=== PATIENT | male | born 1965 | race Caucasian/White ===

== ENCOUNTER 2019-07-16 09:46 | Emergency (ER) | payer BC ==
--- OUTSIDE RECORDS SUMMARY | 2019-07-16 09:58 | XMS REPORT | Continuity of Care Document ---
:1965 External Reference #:[id number] Author Name PAWAN Schmidt (transmitted by agent of provider Harshal Da Silva) Address [address] [place] [address] Care Team Providers Name Role Phone Zach Kim Family Medicine Care Team Information [employer] Lieutenant [phone] Problems Active Problems Provider Date Prostatitis Zach Kim M.D. Onset: 11/12/2018 Other human herpesvirus infection Zach Kim M.D. Onset: 12/07/2015 Blood chemistry abnormal Zach Kim M.D. Onset: 05/08/2014 Increased frequency of urination Zach Kim M.D. Onset: 08/22/2013 Benign essential hypertension Zach Kim M.D. Onset: 08/22/2013 Hyperlipidemia Zach Kim M.D. Onset: 08/22/2013 Coronary arteriosclerosis Zach Kim M.D. Onset: 08/22/2013 Deficiency anemias Zach Kim M.D. Onset: 08/22/2013 Acute gastrojejunal ulcer with hemorrhage but Zach Kim M.D. Onset: without obstruction Social History Type Date Description Comments Sex Unknown Tobacco Use Start: Unknown End: Unknown Former Cigarette Smoker ETOH Use Denies alcohol use Tobacco Use Start: Unknown End: Unknown Patient is a former smoker Smoking Status Reviewed: 07/15/19 Patient is a former smoker Allergies, Adverse Reactions, Alerts Description No Known Drug Allergies Medications Active Medications SIG Qnty Indications Ordering Provider Date [facility] Wort 2 po qd PAWAN Contreras 10/23/2018 300mg Capsules Cialis take 1 tablet 30tabs N52.9 Zach Kim, 06/01/2017 5mg Tablets every day as M.DTamar directed Lamictal 1 by mouth daily 90tabs F31.11 Hanna Davidson, [facility] 08/24/2016 100mg Tablets Plavix 1 po qd Unknown 75mg Tablets Losartan 1 by mouth every Unknown Potassium/Hydrochloro day thiazide 100-12.5mg Tablets Atorvastatin Calcium 1 by mouth every Unknown day 80mg Tablets History Medications Levaquin 1 by mouth 7tabs J01.90 Litzy Rebecca 01/27/2019 - 500mg daily x 7 days SAHIL Lam 02/03/2019 Tablets Immunizations Description No Information Available Vital Signs Date Vital Result Comment 07/15/2019 8:30pm BP Systolic 100 mmHg BP Diastolic 68 mmHg Heart Rate 80 /min Body Temperature 100.8 F Respiratory Rate 16 /min Height 66 inches 5'6" Weight 203.00 lb BMI (Body Mass Index) 32.8 kg/m2 01/27/2019 4:13pm BP Systolic 132 mmHg BP Diastolic 60 mmHg Heart Rate 66 /min Body Temperature 98.8 F Respiratory Rate 16 /min Height 66 inches 5'6" Weight 202.50 lb BMI (Body Mass Index) 32.7 kg/m2 Results Test Acquired Date Facility Test Result H/L Range Note Laboratory test 05/06/2019 [facility] [place] Clotest SEE RESULT 1 finding BELOW Surgical Pathology 05/06/2019 [facility] [place] Surgical SEE RESULT 2 Pathology BELOW PDFReport SEE IMAGE 1 SEE RESULT BELOW Name: REJI VELAZQUEZ : [address]: Kingston Echevarria MD Acct: [id number] Unit: [id number] AGE: 54 Location: ENDO Re05/06/19 SEX: M Status: REG REF SPEC: [id number] PILO: 05/06/19-[address]: Kingston Echevarria MD REQ: [id number] RECD: 05/06/19-1356 STATUS: COMP BLESSING DR: Zach Kim MD _ SOURCE: GAS ANTRUM SPDESC: ORDERED: Clotest Procedure Result Reported Site Clotest Final 05/07/19- 0700 ML Clotest Negative * ML - Main Lab . END OF REPORT DEPARTMENT OF PATHOLOGY, [address] [place] [address] Aaron Garcia M.D. Director [facility] # [id number] 2 SEE RESULT BELOW Name: REJI VELAZQUEZ : [address]: Kingston Echevarria MD Acct: [id number] Unit: [id number] AGE: 54 Location: ENDO Re05/06/19 SEX: M Status: DEP REF SPEC: [id number] PILO: 05/06/19 [facility] DR: Kingston Echevarria MD REQ: [id number] RECD: 05/06/19 STATUS: DARIAN FUNK DR: Zach Kim MD _ ORDERED: LEVEL 4 FINAL DIAGNOSIS Stomach, greater curvature, biopsy: -- Body-type gastric mucosa with minimal superficial chronic gastritis. -- No evidence of Helicobacter organisms. CLINICAL HISTORY Abdominal pain POST-OPERATIVE DIAGNOSIS EGD: larynx - not seen; esophagus - normal esophagogastric 37 cm; small sliding hiatal hernia; stomach - normal; GER test and biopsy (2); duodenum - mild scar apex of bulb; colonoscopy: normal; conclusions: small sliding hiatal hernia; history of duodenal ulcers; dyspepsia unknown; normal colon and terminal ileum GROSS DESCRIPTION The specimen is received in formalin labeled, Biopsy Gastric Greater Curvature, and consists of two denney red irregular to polypoid soft tissue fragments measuring 0.5 x 0.4 x 0.3 cm and 0.8 x 0.4 x 0.2 cm, which are entirely submitted in one cassette. Signed by and Reported on: Do Ta MD 05/08/19 1235 END OF REPORT DEPARTMENT OF PATHOLOGY, [address] [place] [address] Aaron Garcia M.D. Director [facility] # [id number] Procedures Date Code Description Status 05/06/2019 [id number] Colonoscopy Completed Medical Devices Description No Information Available Encounters Type Date Location Provider Dx Diagnosis Office Visit 01/27/2019 Main Office Litzy Fernandez J01.90 Acute sinusitis, 4:00p SAHIL Lam unspecified Assessments Date Code Description Provider 07/15/2019 R50.9 Fever, unspecified Do Parks, [facility] 07/15/2019 R05 Cough Do Parks, [facility] 01/27/2019 J01.90 Acute sinusitis, unspecified Litzy Lam NP Plan of Treatment 07/15/2019 - Do Parks, FNPR50.9 Fever, [id number] CoughAllComments: Medication Management Patient Understands medications he 's taking? Yes No Are there Barriers to Adherence? Yes No Has the patient been asked about herbal supplements and therapies, andOTC meds? Yes No As always, we strongly encourage a healthy diet and making physical activity a part of your every day life. If you have questions about how or where to start, please contact the office. Functional Status Description No Information Available Mental Status Description No Information Available Referrals Description No Information Available
--- OUTSIDE RECORDS SUMMARY | 2019-07-16 09:58 | XMS REPORT | Continuity of Care Document ---
:1965 External Reference #:[id number] Author Name Debo Meng, MSN, SUPERIOR COURT CLERK Address [address] [place] [address] Care Team Providers Name Role Phone Harshal Da Silva MD - Family Medicine Care Team Information Cell Tuber Hand [phone] Zach Kim MD - Ophthalmic Care Team Information Cell T[employer] Hand [phone] Problems Active Problems Provider Date Anxiety state Bryan Germain M.D., Onset: 02/06/2018 [facility] Essential hypertension Bryan Germain M.D., Onset: 01/28/2015 [facility] Atherosclerotic heart disease of Bryan Germain M.D., Onset: 01/28/2015 [place] coronary artery without angina [facility] pectoris Benign essential hypertension Bryan Germain M.D., Onset: 07/23/2014 [facility] Cough Bryan Germain M.D., Onset: 10/21/2012 [facility] Malaise and fatigue Bryan Germain M.D., Onset: 10/21/2012 [facility] Sleep dysfunction with sleep stage Bryan Germain M.D., Onset: 2012 disturbance [facility] Hyperlipidemia Bryan Germain M.D., Onset: 08/15/2012 [facility] Coronary arteriosclerosis Bryan Germain M.D., Onset: 08/15/2012 [facility] Chest pain Bryan Germain M.D., Onset: 08/15/2012 [facility] Chronic ischemic heart disease Onset: 08/25/2013 Gastroesophageal reflux disease Kingston Echevarria MD Onset: 07/31/2009 Tobacco user Kingston Echevarria MD Onset: 09/01/2010 Social History Type Date Description Comments Sex Unknown Tobacco Use Start: Unknown End: Former Cigarette Smoker quit 2 yrs ago 2010 Unknown ETOH Use Drinks Alcoholic Beverages Rarely Allergies, Adverse Reactions, Alerts Description No Known Drug Allergies Medications Active Medications SIG Qnty Indications Ordering Date Provider Atorvastatin Calcium 1 by mouth every 90tabs Bryan Germain 08/26/2018 day Enriqueta Sorensen, [facility] 80mg Tablets Losartan Take One Tablet By 30tabs I10 Debo Meng 07/30/2018 Potassium/Hydrochloro Mouth Every Day Talat, MSN, thiazide SUPERIOR COURT CLERK 100-12.5mg Tablets Lorazepam 1 by mouth or 60tabs Bryan Germain 01/07/2016 0.5mg Tablets sublingual two Enriqueta Sorensen, [facility] times a day as needed for anxiety Nitrostat place one tablet 25tabs Delgado Mcrae 11/19/2013 0.4mg Tablets under the tongue ELLY Alexis Sub every 5 minutes for up to 3 doses as needed for chest pain. if chest pain still persists co Lamictal 1 tab by mouth Unknown 100mg Tablets every day Cialis 1 tab by mouth as Unknown 10mg Tablets needed Plavix Take One Tablet By 90tabs Bryan Germain 75mg Tablets Mouth Every Day Enriqueta Sorensen, [facility] Immunizations Description No Information Available Vital Signs Date Vital Result Comment 05/23/2019 7:58am BP Systolic Sitting Left Arm 102 mmHg BP Diastolic Sitting Left Arm 60 mmHg Heart Rate 90 /min Respiratory Rate 16 /min Height 67 inches 5'7" Weight 207.00 lb BMI (Body Mass Index) 32.4 kg/m2 BSA (Body Surface Area) 2.05 m2 [place] body weight in kilograms 67 kg O2 % BldC Oximetry 98 % 10/16/2018 2:09pm BP Systolic Sitting Right Arm 118 mmHg BP Diastolic Sitting Right Arm 74 mmHg Heart Rate 61 /min Respiratory Rate 18 /min Height 67 inches 5'7" Weight 200.00 lb BMI (Body Mass Index) 31.3 kg/m2 BSA (Body Surface Area) 2.02 m2 [place] body weight in kilograms 67 kg O2 % BldC Oximetry 95 % Results Description No Information Available Procedures Description No Information Available Medical Devices Description No Information Available Encounters Type Date Location Provider Dx Diagnosis Office Visit 05/23/2019 Cardiology Office MengDebo I25.10 [facility] 7:40a Talat, [place], disease of [place] SUPERIOR [employer] CLERK coronary artery w/o ang pctrs I10 Essential (primary) hypertension E78.5 Hyperlipidemia, unspecified F41.9 Anxiety disorder, unspecified Assessments Date Code Description Provider 05/23/2019 I25.10 Atherosclerotic heart disease of Yusra, Debo [place]and, [place], [place] coronary artery with SUPERIOR COURT CLERK 05/23/2019 I10 Essential (primary) hypertension Debo Meng, [place], SUPERIOR COURT CLERK 05/23/2019 E78.5 Hyperlipidemia, unspecified Debo Meng, [place], SUPERIOR COURT CLERK 05/23/2019 F41.9 Anxiety disorder, unspecified Debo Meng, [place], SUPERIOR COURT CLERK Plan of Treatment Future Appointment(s):12/01/2019 3:20 pm - Debo Meng, MSN, SUPERIOR COURT CLERK at Cardiology Tmoetk6305/23/2019 - Debo Meng MSN, FNPI25.10 Atherosclerotic heart disease of [place] coronary artery withNew Labs:CBC W/ Automated Diff, Ordered: 05/23/19Comments:He will get the labs ordered last visit.I10 Essential (primary) hypertensionComments:No changes.E78.5 Hyperlipidemia, unspecifiedNew Labs:Comprehensive Metabolic Panel, Ordered: LDL Cholesterol Profile, Ordered: 05/23/19Comments:Will get labs today.F41.9 Anxiety disorder, unspecifiedComments:No changes.AllFollow up: Follow up visit in six months. Functional Status Functional Condition Comment Date Status Independent with all ADL's Active Glasses Active Mental Status Description No Information Available Referrals Description No Information Available
--- OUTSIDE RECORDS SUMMARY | 2019-07-16 09:58 | XMS REPORT | Continuity of Care Document ---
:1965 External Reference #:[id number] Author Name Debo Meng, MSN, [employer]ER[employer] SUPERVISOR Address [address] [place] [address] Care Team Providers Name Role Phone Harshal Da Silva MD - Family Medicine Care Team Information Marine Chronometer Assembler [phone] Zach Kim MD - Ophthalmic Care Team Information Marine Chronometer Assembler [phone] Problems Active Problems Provider Date Anxiety state Bryan Germain M.D., Onset: 02/06/2018 [facility] Essential hypertension Bryan Germain M.D., Onset: 01/28/2015 [facility] Atherosclerotic heart disease of Bryan Germain M.D., Onset: 01/28/2015 [place] coronary artery without angina [facility] pectoris Benign essential hypertension Bryan Germain M.D., Onset: 07/23/2014 [facility] Cough Bryan Germain M.D., Onset: 10/21/2012 [facility] Malaise and fatigue Bryan Germain M.D., Onset: 10/21/2012 [facility] Sleep dysfunction with sleep stage Bryan Germain M.D., Onset: 2012 disturbance [facility] Hyperlipidemia Bryan Germain M.D., Onset: 08/15/2012 [facility] Coronary arteriosclerosis Bryan Germain M.D., Onset: 08/15/2012 [facility] Chest pain Bryan Germain M.D., Onset: 08/15/2012 [facility] Chronic ischemic heart disease Onset: 08/25/2013 Gastroesophageal reflux disease Kingston Echevarria MD Onset: 07/31/2009 Tobacco user Kingston Echevarria MD Onset: 09/01/2010 Social History Type Date Description Comments Sex Unknown Tobacco Use Start: Unknown End: Former Cigarette Smoker quit 2 yrs ago 2010 Unknown Smoking Status Reviewed: 07/04/19 Former Cigarette Smoker quit 2 yrs ago 2010 ETOH Use Drinks Alcoholic Beverages Rarely Allergies, Adverse Reactions, Alerts Description No Known Drug Allergies Medications Active Medications SIG Qnty Indications Ordering Date Provider Clopidogrel Take One Tablet By 90tabs Yusra, Debo 06/10/2019 Bisulfate Mouth Every Day [place], 75mg [employer] SUPERVISOR Tablets Atorvastatin Calcium 1 by mouth every 90tabs Bryan Germain 08/26/2018 karin Sorensen M.D., [facility] 80mg Tablets Losartan Take One Tablet By 30tabs I10 Debo Meng 07/30/2018 Potassium/Hydrochlor Mouth Every Day [place], othiazide [employer] SUPERVISOR 100-12.5mg Tablets Nitrostat place one tablet 25tabs Delgado Mcrae 11/19/2013 0.4mg under the tongue B., PA Tablets Sub every 5 minutes for up to 3 doses as needed for chest pain. if chest pain still persists co Lamictal 2 po daily Unknown 25mg Chewtabs Cialis take 1 tablet by Unknown 5mg Tablets mouth daily for erectile dysfunction [facility] Wort 2 by mouth every Unknown 300mg day Capsules Immunizations Description No Information Available Vital Signs Date Vital Result Comment 07/04/2019 8:20am BP Systolic Sitting Right Arm 128 mmHg BP Diastolic Sitting Right Arm 92 mmHg Heart Rate 76 /min Respiratory Rate 14 /min Height 67 inches 5'7" Weight 208.00 lb BMI (Body Mass Index) 32.6 kg/m2 BSA (Body Surface Area) 2.06 m2 [place] body weight in kilograms 67 kg O2 % BldC Oximetry 96 % Ra 05/23/2019 7:58am BP Systolic Sitting Left Arm 102 mmHg BP Diastolic Sitting Left Arm 60 mmHg Heart Rate 90 /min Respiratory Rate 16 /min Height 67 inches 5'7" Weight 207.00 lb BMI (Body Mass Index) 32.4 kg/m2 BSA (Body Surface Area) 2.05 m2 [place] body weight in kilograms 67 kg O2 % BldC Oximetry 98 % Results Test Acquired Date Facility Test Result H/L Range Note CBC No Diff 07/02/2019 [facility] White Blood 5.5 10^ 3/uL Normal 3.5-10.8 [phone] Count Red Blood Count 5.15 10^6/uL Normal 4.18-5.48 Hemoglobin 15.2 g/dL Normal 14.0-18.0 Hematocrit 44 % Normal 42-52 Mean Corpuscular Volume 85 fL Normal 80-94 Mean Corpuscular Hemoglobin 30 pg Normal 27-31 Mean Corpuscular HGB Conc 35 g/dL Normal 31-36 Red Cell Distribution Width 13 % Normal 10-15 Platelet Count 223 10^3/uL Normal 150-450 Mean Platelet Volume 8.2 fL Normal 7.4-10.4 Comp Metabolic 07/02/2019 [facility] Sodium 140 mmol/ L Normal 135-145 Panel [phone] Potassium 4.0 mmol/L Normal 3.5-5.0 Chloride 103 mmol/L Normal 101-111 Co2 Carbon Dioxide 32 mmol/L Normal 22-32 Anion Gap 5 mmol/L Normal 2-11 Glucose 86 mg/dL Normal 70-100 Blood Urea Nitrogen 18 mg/dL Normal 6-24 Creatinine 0.92 mg/dL Normal 0.67-1.17 BUN/Creatinine Ratio 19.6 Normal 8-20 Calcium 9.7 mg/dL Normal 8.6-10.3 Total Protein 6.6 g/dL Normal 6.4-8.9 Albumin 4.4 g/dL Normal 3.2-5.2 Globulin 2.2 g/dL Normal 2-4 Albumin/Globulin Ratio 2.0 Normal 1-3 Total Bilirubin 0.70 mg/dL Normal 0.2-1.0 Alkaline Phosphatase 68 U/L Normal 34-104 Alt 35 U/L Normal 7-52 Ast 21 U/L Normal 13-39 Egfr Non- 85.7 >60 Egfr 103.7 >60 1 Laboratory test 07/02/2019 [facility] LDL Cholesterol 79 mg/dL 2 finding [phone] Direct 1 Because ethnic data is not always readily available, this report includes an eGFR for both -Americans and non- Americans. The National Kidney Disease Education Program (NKDEP) does not endorse the use of the MDRD equation for patients that are not between the ages of 18 and 70, are , have extremes of body size, muscle mass, or nutritional status, or are non- or non-. According to the National Kidney Foundation, irrespective of diagnosis, the stage of the disease is based on the level of kidney function: Stage Description GFR(mL/min/1.73 m(2)) 1 Kidney damage with normal or decreased GFR 90 2 Kidney damage with mild decrease in GFR 60-89 3 Moderate decrease in GFR 30-59 4 Severe decrease in GFR 15-29 5 Kidney failure <15 (or dialysis) 2 Desirable: <100 Near Optimal: 100-129 Borderline High: 130-159 High: 160-189 Very High: >189 Procedures Description No Information Available Medical Devices Description No Information Available Encounters Type Date Location Provider Dx Diagnosis Office Visit 07/04/2019 Cardiology Office Debo Meng I25.10 [facility] heart 8:20a [place]ON[place], disease of [place] [employer] SUPERVISOR coronary artery w/o ang pctrs I10 Essential (primary) hypertension E78.5 Hyperlipidemia, unspecified Office Visit 05/23/2019 7:40a Cardiology Office Debo Meng I25.10 [facility] P[place], disease of [employer] SUPERVISOR [place] coronary artery w/o ang pctrs I10 Essential (primary) hypertension E78.5 Hyperlipidemia, unspecified F41.9 Anxiety disorder, unspecified Assessments Date Code Description Provider 07/04/2019 I25.10 Atherosclerotic heart disease of Debo Meng MSN, [place] coronary artery with [employer] SUPERVISOR 07/04/2019 I10 Essential (primary) hypertension Debo Meng MSN, [facility] 07/04/2019 E78.5 Hyperlipidemia, unspecified Debo Meng MSN, [facility] 05/23/2019 I25.10 Atherosclerotic heart disease of Debo Meng MSN, [place] coronary artery with [employer] SUPERVISOR 05/23/2019 I10 Essential (primary) hypertension Debo Meng MSN, [facility] 05/23/2019 E78.5 Hyperlipidemia, unspecified Debo Meng MSN, [facility] 05/23/2019 F41.9 Anxiety disorder, unspecified Debo Megn, MSN, [employer] SUPERVISOR Plan of Treatment Future Appointment(s):08/07/2019 8:00 am - Debo Meng, MSN, CONTA[employer] AND SERVICE CLERKS SUPERVISOR at Cardiology Nmxbte7107/04/2019 - Debo Meng, [place], FNPI25.10 Atherosclerotic heart disease of [place] coronary artery withNew Orders:Nuclear Stress Test, Cardiolite, Exercise, Ordered: 07/04/19Comments:Will evaluate his ischemic potential with a nuclear stress test.I10 Essential (primary) hypertensionComments:Monitor BP's at home. Bring the home cuff in for the next visit. Bring a record of the home BP'sto the next visit. Will assess for a HTN response to exercise.E78.5 Hyperlipidemia, unspecifiedComments:No changes.AllFollow up:After nuclear stress test completed. Functional Status Functional Condition Comment Date Status Independent with all ADL's Active Glasses Active Mental Status Description No Information Available Referrals Description No Information Available
[2019-07-16 10:50] LABS: Influenza A Molecular POSITIVE (Negative)
[2019-07-16 10:53] VITALS: BP 120/81
--- NOTE | 2019-07-16 11:12 | UC ---
UC General HPI - History of Current Complaint Chief Complaint: UCGeneralIllness Stated Complaint: COUGH Time Seen by Provider: 07/16/19 11:01 Pain Intensity: 0 - Allergy/Home Medications Allergies/Adverse Reactions: Allergies Allergy/AdvReac Type Severity Reaction Status Date / Time No Known Allergies Allergy Verified 07/16/19 10:48 Home Medications: Home Medications Atorvastatin* [Lipitor 40 MG*] 80 mg PO DAILY 04/23/13 [History Confirmed ] Clopidogrel TAB* [Plavix TAB*] 75 mg PO DAILY 04/23/13 [History Confirmed ] Losartan/Hydrochlorothiazide [Losartan Potassium/Hydroc 100-12.5 mg] 1 tab PO DAILY 04/21/19 [History Confirmed 05/06/19] Omeprazole CAP (NF) [Prilosec CAP* 20 MG] 20 mg PO BID 04/21/19 [History Confirmed 05/06/19] Tadalafil [Cialis] 5 mg PO DAILY PRN 04/21/19 [History Confirmed 05/06/19] lamoTRIgine TAB(*) [LaMICtal TAB(*)] 100 mg PO DAILY 04/21/19 [History Confirmed 05/06/19] LORazepam TAB(*) [Ativan 1 MG TAB (*)] 1 mg PO BID 05/06/19 [History Confirmed 05/06/19] PMH/Surg Hx/FS Hx/Imm Hx - Surgical History Surgical History: Yes Surgery Procedure, Year, and Place: CARDIAC STENT 2012, umbilical hernia when 18 - Family History Known Family History: Positive: None - Social History Alcohol Use: None Substance Use Type: None Smoking Status (MU): Never Smoked Tobacco - Immunization History Most Recent Influenza Vaccination: long time ago Most Recent Tetanus Shot: 2009 Most Recent Pneumonia Vaccination: never Physical Exam Vital Signs: Initial Vital Signs Temp 99.4 F 07/16/19 10:48 Pulse 86 07/16/19 10:48 Resp 16 07/16/19 10:48 BP 120/81 07/16/19 10:48 Pulse Ox 97 07/16/19 10:48 Course/Dx - Course Course Of Treatment: This is a 54 yr old who was tested flu negative at PCPs office and was sent here for coronavirus testing Flu A positive Clinically improving Plan You tested positive for influenza A Continue supportive treatment Rest, fluids and ibuprofen as needed for pain/fever If symptoms persist or worsen, recommend follow up with PCP or return to urgent care REcommend return to work on 07/20 Discharge ED - Discharge Plan Condition: Good Disposition: HOME Patient Education Materials: Influenza (ED) Referrals: Zach Kim MD [Primary Care Provider] - Additional Instructions: You tested positive for influenza A Continue supportive treatment Rest, fluids and ibuprofen as needed for pain/fever If symptoms persist or worsen, recommend follow up with PCP or return to urgent care REcommend return to work on 07/20 - Billing Disposition and Condition Condition: GOOD Disposition: Home
[2019-07-16] MEDS ORDERED: Ondansetron INJ* 2 MG/ML VIAL IV ONE (11:15)
[2019-07-16] MEDS ORDERED: NS 0.9% 1000 ML** 1,000 ML IV ONE (11:15)
== END 2019-07-16 11:31 | disposition home or self-care (01) ==
LOC: UCEAST 09:46
DX: J10.1 Influenza due to other identified influenza virus with other respiratory manifestations (principal); Z95.5 Presence of coronary angioplasty implant and graft
CPT/HCPCS: 99211; G0463